=== PATIENT | male | born 1970 | race Caucasian/White ===

== ENCOUNTER 2023-07-24 10:27 | Emergency (ER) | payer OTHER, SELFPAY ==
[2023-07-24 10:34] VITALS: BP 139/101; PULSE 110; RESP 18; TEMP 36.1; O2SAT 98; BMI 34.6
--- NOTE | 2023-07-24 12:55 | ED_ITS ---
HPI - Back Pain/Injury General Time Seen by Provider: 12:55 Date Seen: 07/24/23 Chief Complaint: Back Injury/Pain Stated Complaint: Thrush, bulging discs Time Seen by Provider: 07/24/23 12:54 Source: patient and RN notes reviewed Mode of arrival: ambulatory Limitations: no limitations History of Present Illness HPI Narrative: Patient is a 52-year-old male with known left L4 disc issue in radiculopathy coming in with pain and concern of thrush. About 2 months ago he started with some back pain and pain radiating down the outside of his leg with pain into the knee. He initially tried the chiropractor, gave him an adjustment, had severe increase in pain with a burning type numbness tingling on the outside of the leg but only to the knee. He ended up at [facility], MRI showed an L4 radiculopathy on the left side. He had an injection of steroid 6 days ago, was on oral steroids at that time. He did not feel any improvement of his back symptoms on oral steroids. Since the injection the burning type skin pain on the outside of the leg has gone away but he has the pain that is residual and nonstop in the knee. He is on gabapentin, there escalating him to 900 mg 3 times a day, he does need to get his refill. He has no loss of bowel or bladder control. Not noting any motor weakness. He just is uncomfortable, does have ongoing back pain. He states the pain in the back in the knee on the left side is just relentless. Sleep is diminished. No fevers or chills. He has subsequently developed sores in his mouth with white plaques, concerned for thrush. Related Data Home Medications Medication Instructions Recorded Confirmed amlodipine 5 mg tablet 5 mg PO DAILY 07/24/23 07/24/23 cyclobenzaprine 10 mg tablet mg PO 07/24/23 gabapentin 300 mg capsule PO 07/24/23 lisinopril 10 mg tablet 10 mg PO DAILY 07/24/23 07/24/23 Previous Rx's Medication Instructions Recorded fluconazole 150 mg tablet 150 mg PO Q3D 2 doses #2 tabs 07/24/23 nystatin 100,000 unit/mL oral 500,000 unit (5 mL) PO QID 7 days 07/24/23 suspension #140 mL oxycodone 5 mg tablet 5 mg PO Q6H PRN pain #10 tabs 07/24/23 Allergies Allergy/AdvReac Type Severity Reaction Status Date / Time No Known Drug Allergies Allergy Verified 07/24/23 10:33 Review of Systems Narrative: As per HPI. Exam Const: Vital Signs, click to edit/add: Vital Signs - 24 hr 07/24/23 10:34 Temperature 97 F L Pulse Rate [Pulse Oximeter] 110 H Respiratory Rate 18 Blood Pressure [Ri ght Upper Arm] 139/101 H Pulse Oximetry 98 Oxygen Delivery Me thod Room Air Patient is lying flat on the ED bed in room 5. He is alert, interactive, no apparent distress. Does get tearful while talking during the interaction but is certainly appropriate, no significant distress. Sclera clear, pupils equal round reactive, speech normal. His tongue has some underlying erythema with white adherent plaques most definitely consistent with thrush. I could not get DTRs on either lower extremity. He has no lower extremity edema. Strength is 5/5 and symmetric of his lower extremity, no left knee joint effusion noted. He has normal light touch sensation in this extremity. Documenting provider has reviewed patient's vital signs: yes Course Course ED Course: This 52-year-old male has obvious thrush. We discussed that we could try another course of oral steroids but he really found no benefit with them and was recently on them. Did review that oral steroids might confound the thrush in make it worse or less likely to resolve is quickly even despite treatment. After discussion, we have decided to forego another course of oral steroids. Has used Vicodin and Percocet remotely in the past, had no problems but did not feel that Vicodin was very helpful to him. They think he may be last use some Percocet with some dental or oral surgery but it has been years ago. We certainly will treat him for the thrush as well, recommend oral Diflucan and then the topical medicine as well. They understand that we have limits to the amount of narcotics we can give here. There is a risk for narcotic dependence. He notes that the orthopedist do not want to give him pain meds. We can give a small supply and I do encourage him to follow up with his primary care provider. Vital Signs Vital signs: Initial Vital Signs Temperature 97 F L 07/24/23 10:34 Temperature Source Temporal Artery Scan 07/24/23 10:34 Pulse Rate 110 H 07/24/23 10:34 Respiratory Rate 18 07/24/23 10:34 Blood Pressure 139/101 H 07/24/23 10:34 Blood Pressure Mean 113 H 07/24/23 10:34 Blood Pressure Position Sitting 07/24/23 10:34 Pulse Oximetry 98 07/24/23 10:34 Oxygen Delivery Method Room Air 07/24/23 10:34 Vital Signs Temperature 97 F L 07/24/23 10:34 Pulse Rate 110 H 07/24/23 10:34 Respiratory Rate 18 07/24/23 10:34 Blood Pressure 139/101 H 07/24/23 10:34 Pulse Oximetry 98 07/24/23 10:34 Oxygen Delivery Method Room Air 07/24/23 10:34 Temperature 97 F L 07/24/23 10:34 Pulse Rate 110 H 07/24/23 10:34 Respiratory Rate 18 07/24/23 10:34 Blood Pressure 139/101 H 07/24/23 10:34 Pulse Oximetry 98 07/24/23 10:34 Oxygen Delivery Method Room Air 07/24/23 10:34 Critical Care Time Critical Care Time Critical Care Time: No Discharge Plan Discharge Instructions: Oral Candidiasis (ED), Lumbar Radiculopathy (ED) Activity Level: Activity as Tolerated Prescriptions: New fluconazole 150 mg tablet 150 mg PO Q3D Qty: 2 0RF nystatin 100,000 unit/mL suspension 500,000 unit PO QID 7 Days Qty: 140 0RF Rx Instructions: administer 1/2 of dose in each side of the mouth oxycodone 5 mg tablet 5 mg PO Q6H PRN (Reason: pain) Qty: 10 0RF No Action amlodipine 5 mg tablet 5 mg PO DAILY lisinopril 10 mg tablet 10 mg PO DAILY cyclobenzaprine 10 mg tablet PO gabapentin 300 mg capsule PO Stand Alone Forms: MyHealth Info Instructions
== END 2023-07-24 13:45 | disposition home or self-care (01) ==
PROVIDERS: Emergency Provider Family Medicine; PCP Family Medicine
DX: B37.9 Candidiasis, unspecified (principal)
CPT/HCPCS: 95992; 99283